=== PATIENT | male | born 1940 | race Caucasian/White ===

== ENCOUNTER 2018-12-19 09:57 | Outpatient (CLI) | payer MEDICARE, OTHER ==
--- NOTE | 2018-12-19 12:18 | CARDIAC PROCEDURE NOTE ---
DATE OF SERVICE: 12/19/2018 Physician: Lynda Peterson MD, [facility] INDICATIONS: Atrial flutter. CARDIAC RISK FACTORS 1. Advanced age. 2. Male gender. 3. Hyperlipidemia. 4. Diabetes. 5. The patient also has a history of known coronary artery disease with bypass surgery remotely and then redone in 1990. PROCEDURE: After signing informed consent, the patient underwent a Mohsen- protocol treadmill stress test with Echo imaging. RESTING HEART RATE: 98. PEAK HEART RATE: 145 (101% predicted maximum heart rate for age). RESTING BLOOD PRESSURE: 153/100. PEAK BLOOD PRESSURE: 165/65. The patient exercised for 3 minutes and 52 seconds on a Mohsen-protocol treadmill stress test. He achieved a peak heart rate of 145 (101% PMHR) and 5.5 METS. The patient developed no chest pain, but described his typical fatigue and had shortness of breath, which he rated moderate to severe. (The patient states that over the past 3 weeks, this type of fatigue and shortness of breath are his new problems). The exercise was stopped because of achieving target heart rate and developing significant symptoms. RESTING EKG: Atrial flutter with predominantly 2:1 block, rare PVC, vertical axis, QS waves in V1 and V2, poor R-wave progression. EKG AT PEAK: Atrial flutter, new right axis deviation, possible 1mm ST elevation in V1 and V2, diffuse nonspecific ST segment changes vs baseline abnormality from his atrial flutter. SUMMARY 1. Abnormal EKG with abnormal rhythm of atrial flutter and possible old PR in the anteroseptal region. 2. Poor exercise tolerance. 3. Cannot rule out ischemic EKG changes with exercise, due to the EKG's baseline, which has saw-tooth flutter waves. 4. This patient's cardiac risk based on EKG changes: SEVERE (due to the presence of QS waves at rest and a possible aneurysm. based on EKG changes). 5. Echo images reported separately. TD: 12/19/2018 11:56 [email or web address]
== END 2018-12-19 09:58 | disposition home or self-care (01) ==
LOC: DI 09:57
PROVIDERS: ATTEND Nurse Practitioner Family
DX: I48.92 Unspecified atrial flutter (principal); R94.31 Abnormal electrocardiogram [ECG] [EKG]; E78.5 Hyperlipidemia, unspecified; E11.9 Type 2 diabetes mellitus without complications; I25.10 Atherosclerotic heart disease of native coronary artery without angina pectoris; Z95.1 Presence of aortocoronary bypass graft
CPT/HCPCS: 93016; 93017; 93018; 93350

== ENCOUNTER 2019-02-14 07:49 | Outpatient (CLI) | payer MEDICARE, OTHER ==
[2019-02-14] MEDS ORDERED: IOVERSOL 320 100 ML VIAL IVP ONE ×2 (08:07→08:47)
--- NOTE | 2019-02-14 12:31 | CT Report ---
Reason: BLOOD IN URINE Procedure Date: 02/14/2019 Accession Number: [id number] / [id number] Procedure: CT - ABDOMEN/PELVIS W/WO CPT Code: FULL RESULT: EXAM: CT ABDOMEN AND PELVIS WITHOUT AND WITH CONTRAST (CT IVP) EXAM DATE: 02/14/2019 09:06 AM. CLINICAL HISTORY: BLOOD IN URINE. COMPARISONS: None. TECHNIQUE: Routine helical imaging was performed through the kidneys, ureters and bladder in the precontrast, postcontrast and delayed phase. IV Contrast: OPTI 320 100ML. Reconstructions: Coronal and sagittal. In accordance with CT protocol optimization, one or more of the following dose reduction techniques were utilized for this exam: automated exposure control, adjustment of mA and/or KV based on patient size, or use of iterative reconstructive technique. FINDINGS: Lung Bases: No pleural effusion. Mild cardiac enlargement. Liver: Normal. No masses. Gallbladder/Bile Ducts: Unremarkable. Spleen: Normal. Small accessory splenule Pancreas: Normal. Adrenal Glands: Fullness left greater than right Kidneys/Bladder: Right Kidney/Ureter: At least 6 nonobstructing right renal stones the largest 7 mm lower pole. No hydronephrosis or hydroureter. Subcentimeter cyst. No definite solid masses. Left Kidney/Ureter: At least 6 nonobstructing stones, the largest upper pole 1.1 cm. No hydronephrosis or hydroureter. 1.6 cm low-attenuation lesion interpolar region left kidney with small amount of dependent high attenuation, question complex cyst, series 4 image 32, series 7 image 33. Subcentimeter areas of low attenuation too small to accurately characterize. No definite solid masses. Bladder: No stones. No wall thickening or mass. Peritoneal Cavity/Bowel: No free fluid, free air or pathologic adenopathy. No masses or acute inflammatory process. Pelvic Organs: Markedly enlarged prostate, vertical extent 6.5 cm, volume 111 cc, elevating and deforming the bladder base. Vasculature: No aneurysms. Atherosclerotic calcification. Bones: Degenerative change in the spine with mild lumbar levoscoliosis. Other: Fat-containing left inguinal hernia IMPRESSION: 1. Markedly enlarged prostate elevating and deforming the bladder base, volume 111 cc. 2. Bilateral numerous nonobstructing renal calculi. 3. 1.6 cm indeterminate left interpolar renal lesion, possibly a complex cyst. Suggest correlation with ultrasound. 4. Other incidental findings as above. RADIA
== END 2019-02-14 07:50 | disposition home or self-care (01) ==
LOC: DI 07:49
PROVIDERS: ATTEND Nurse Practitioner Family
DX: N40.0 Benign prostatic hyperplasia without lower urinary tract symptoms (principal); N20.0 Calculus of kidney; N28.9 Disorder of kidney and ureter, unspecified; R31.9 Hematuria, unspecified
CPT/HCPCS: 74178; Q9967

== ENCOUNTER 2021-11-25 08:40 | Outpatient (CLI) | payer MEDICARE, OTHER ==
[2021-11-25 15:32] LABS: BASOPHILS % (AUTO) 0.6 %; EOSINOPHILS # (AUTO) 0.1 10^3/uL (0.0-0.7); EOSINOPHILS % (AUTO) 1.9 %; HCT - HEMATOCRIT 40.2 % (42.0-52.0); HGB - HEMOGLOBIN 13.1 g/dL (14.0-18.0); LYMPHOCYTES # (AUTO) 1.7 10^3/uL (1.5-3.5); LYMPHOCYTES % (AUTO) 27.2 %; MEAN CORPUSCULAR HEMOGLOBIN 33.3 pg (27.0-31.0); MEAN CORPUSCULAR HGB CONC 32.6 g/dL (32.0-36.0); MEAN CORPUSCULAR VOLUME 102.3 fL (80.0-94.0); MEAN PLATELET VOLUME 9.2 fL (7.4-11.4); MONOCYTES # (AUTO) 0.6 10^3/uL (0.0-1.0); MONOCYTES % (AUTO) 9.4 %; NEUTROPHILS # (AUTO) 3.9 10^3/uL (1.5-6.6); NEUTROPHILS % (AUTO) 60.7 %; PLT - PLATELET COUNT 179 10^3/uL (130-450); RED BLOOD COUNT 3.93 10^6/uL (4.70-6.10); RED CELL DISTRIBUTION WIDTH 13.3 % (12.0-15.0); WHITE BLOOD COUNT 6.4 x10^3/uL (4.8-10.8)
[2021-11-25 15:47] LABS: ALBUMIN 3.8 g/dL (3.2-5.5); ALBUMIN/GLOBULIN RATIO 1.2 (1.0-2.2); ALKALINE PHOSPHATASE 50 IU/L (42-121); ALT ALANINE AMINOTRANSFERASE 18 IU/L (10-60); AST ASPARTATE AMINOTRANSFERASE 21 IU/L (10-42); BILIRUBIN,TOTAL 0.7 mg/dL (0.2-1.0); BUN - BLOOD UREA NITROGEN 24 mg/dL (6-20); CALCIUM 9.6 mg/dL (8.5-10.3); CARBON DIOXIDE - CO2 27 mmol/L (21-32); CHLORIDE 102 mmol/L (101-111); CHOL/HDL RATIO 3.2 (<5.0); CHOLESTEROL 104 mg/dL; CREATININE 1.4 mg/dL (0.6-1.2); GFR - MDRD 49 (>89); GLUCOSE 128 mg/dL (70-100); HDL CHOLESTEROL 33 mg/dL; LDL CHOLESTEROL,CALCULATED 50 mg/dL; LDL/HDL RATIO 1.5 (<3.6); POTASSIUM 4.2 mmol/L (3.5-5.0); SODIUM 134 mmol/L (135-145); TOTAL PROTEIN 6.9 g/dL (6.7-8.2); TRIGLYCERIDES 105 mg/dL; URIC ACID 4.6 mg/dL (2.6-7.2); VLDL CHOLESTEROL 21 mg/dL
[2021-11-25 16:01] LABS: THYROID STIMULATING HORMONE 6.03 uIU/mL (0.34-5.60)
[2021-11-25 16:02] LABS: CREATININE,URINE 59.3 mg/dL; MICROALBUM/CREATININE RATIO,UR 379.4 ug/mg (<30.0); MICROALBUMIN,URINE 22.5 mg/dL (0-300.0)
[2021-11-25 19:01] LABS: ESTIMATED AVERAGE GLUCOSE 146 mg/dL (70-100); HEMOGLOBIN A1c% 6.7 % (4.27-6.07)
[2021-11-26 03:08] LABS: HCV AB <0.1 s/co ratio (0.0-0.9)
== END 2021-11-25 08:41 | disposition home or self-care (01) ==
LOC: LAB.S 08:40
PROVIDERS: ATTEND Nurse Practitioner Family
DX: E78.5 Hyperlipidemia, unspecified (principal); E11.9 Type 2 diabetes mellitus without complications; N40.1 Benign prostatic hyperplasia with lower urinary tract symptoms; M10.9 Gout, unspecified; E83.52 Hypercalcemia; D75.89 Other specified diseases of blood and blood-forming organs; R79.89 Other specified abnormal findings of blood chemistry; Z11.59 Encounter for screening for other viral diseases
CPT/HCPCS: 36415; 80053; 80061; 82043; 82306; 82570; 83036; 83721; 83970; 84153; 84443; 84550; 85025; 86803

== ENCOUNTER 2022-09-07 12:03 | Outpatient (CLI) | payer MEDICARE ==
[2022-09-07 12:26] LABS: CREATININE 1.3 mg/dL (0.6-1.2)
[2022-09-07] MEDS ORDERED: iohexoL-300 100 ML VIAL ONE (12:58)
--- NOTE | 2022-09-07 14:39 | CT Report ---
PROCEDURE: IVP INDICATIONS: HEMATURIA CONTRAST: 140ml Omnipaque 300 TECHNIQUE: After the administration of intravenous contrast, 5 mm thick sections acquired from the diaphragms to the symphysis. 5 mm thick coronal and sagittal reformats were acquired. For radiation dose reducti on, the following was used: automated exposure control, adjustment of mA and/or kV according to rox ent size. COMPARISON: None. FINDINGS: Image quality: Excellent. Urinary system: Moderate burden of bilateral, nonobstructing stones. Largest stone measures 1.0 cm in the right (1103 Hounsfield unit), and 4 mm on the left. There is a stone within the distal left uret er measuring 1.1 cm (1109 Hounsfield unit). No filling defects within the opacified renal cortex cons istent or ureters. No bladder stones. No filling defect within the opacified bladder. OTHER Lung bases and heart: Peripheral reticulation with bronchiectasis and no honeycombing. Mild subpleura l sparing. Cardiomegaly. Liver: Unremarkable. Gallbladder and biliary tree: Unremarkable. No biliary dilation. Spleen: Unremarkable. Pancreas: Unremarkable. Adrenals: Unremarkable. Bowel and peritoneum: No bowel distension. No pathologic free fluid. Diverticulosis without evidence of diverticulitis. Abdominal Lymph nodes: No central or retroperitoneal adenopathy. Vessels: Saccular infrarenal aortic aneurysm measuring 3.3 cm. Reproductive organs: Unremarkable. Pelvic Lymph nodes: Unremarkable. Bones: No aggressive osseous abnormality. Other: Left inguinal hernia containing fat. IMPRESSION: 1.1 cm stone within the left ureterovesicular junction. No hydronephrosis. Moderate burden of nonobstructing stones otherwise. Saccular infrarenal aortic aneurysm measuring 3.3 cm. Consider vascular surgery consultation. Peripheral reticulation with bronchiectasis and no honeycombing. 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 Consider pulmono logy referral. Reviewed by: Emerson Albright on 09/07/2022 2:37 PM PDT Approved by: Emerson Albright on 09/07/2022 2:37 PM PDT Station ID: [id number]
[2022-09-07] MEDS ORDERED: iohexoL-300 100 ML VIAL IVP ONE (15:14)
== END 2022-09-07 12:04 | disposition home or self-care (01) ==
LOC: LAB 12:03
PROVIDERS: ATTEND Physician Assistant
DX: R31.0 Gross hematuria (principal); N20.2 Calculus of kidney with calculus of ureter; I71.41 Pararenal abdominal aortic aneurysm, without rupture; J47.9 Bronchiectasis, uncomplicated
CPT/HCPCS: 36415; 74178; 82565; Q9967